=== PATIENT | female | born 1960 | race Caucasian/White ===

== ENCOUNTER 2017-09-02 12:49 | Emergency (ER) | payer MEDICARE, MEDICAID, SELFPAY ==
[2017-09-02 12:51] VITALS: BP 157/86; PULSE 89; RESP 18; TEMP 37.3; O2SAT 95; BMI 41.5
--- NOTE | 2017-09-02 13:05 | EKG12_ITS ---
Test Reason : COUGH Blood Pressure : / mmHG Vent. Rate : 086 BPM Atrial Rate : 086 BPM P-R Int : 140 ms QRS Dur : 082 ms QT Int : 350 ms P-R-T Axes : -17 054 018 degrees QTc Int : 418 ms Sinus rhythm with marked sinus arrhythmia Nonspecific ST abnormality Abnormal ECG Confirmed by JT THAPA, KEKE ([id number]), design editor LUIS GIRALDO ([id number]) on 09/05/2017 2:50:33 PM Referred By: REMBERTO Confirmed By:KEKE WATERS MD
--- NOTE | 2017-09-02 13:05 | RAD_ITS ---
STUDY: X-RAY CHEST REASON FOR EXAM: Female, 57 years old. 3 day history of cough and chest pain. TECHNIQUE: PA and lateral views of the chest. COMPARISON: Comparison is made with prior study dated November 11, 2015. FINDINGS: Hyperinflation. Since prior study, there is evidence of a new focal infiltrate in the posterior medial segment of the left lower lobe. This is superimposed on mild degree of bibasilar scarring. There is no demonstrated pleural abnormality. Normal size heart. Normal mediastinum and rico. Normal visualized pulmonary arteries. There is atherosclerotic tortuosity of the aortic arch and descending thoracic aorta. There is demineralization of the osseous structures. Normal visualized ribs, clavicles, and shoulders. Status post cholecystectomy. RAD/Chest PA and Lateral IMPRESSION: Focal infiltrate in the posterior medial segment of the left lower lobe superimposed on mild degree of basilar scarring. Electronically Signed: Evan Pike MD at 14:29 EST Tel [phone], Service support ,
[2017-09-02 13:16] VITALS: PULSE 92; RESP 20
[2017-09-02] MEDS: Ipratropium/Albuterol Sulfate 3 ML AMPUL.NEB INHALATION (13:16)
[2017-09-02 13:50] LABS: Absolute Lymphocyte Count 1.61 X10^3/ul (0.83-4.51); Absolute Neutrophil Count 6.1 X10^3/uL (2.0-7.7); Basophil# 0.01 X10^3/uL; Basophil% 0.1 % (0-1); Eosinophil# 0.05 X10^3/uL; Eosinophils% 0.6 % (0-5); Hematocrit 38.4 % (37-47); Lymphocyte # 1.61 X10^3/ul (4.0); Lymphocyte % 18.4 % (19-41); Mean Corp Hgb Conc 33.9 g/gl (32-36); Mean Corpuscular Hgb 34.1 pg (27.0-32.0); Mean Corpuscular Volume 100.8 fL (81-99); Monocyte# 0.98 X10^3/uL; Monocyte% 11.2 % (0-10); Neutrophil # 6.07 X10^3/uL (2.7-7.7); Neutrophil % 69.5 % (47-70); Platelet Count 159 K/mm3 (150-450); RBC Distribution Width CV 13.7 % (11.6-14.6); Red Blood Count 3.81 M/mm3 (4.2-5.4); White Blood Count 8.7 K/mm3 (4.4-11.0)
[2017-09-02 13:52] LABS: POSITIVE COUNT NO; POSITIVE DIFFERENTIAL NO; POSITIVE MORPHOLOGY NO
--- NOTE | 2017-09-02 13:56 | ED.VISSUMM ---
- ER Visit Summary Date of Service: 09/02/17 Chief Complaint: [] Cough for 3 days COPD home O2 2 L History of Present Illness: The patient is a 57 F [] 3 days of harsh dry cough on home O2 basically reports that her breathing and COPD is stable except for the harsh cough no runny nose she has had a flu vaccination she has no history of TX PE or DVT she is able to eat and drink bowel bladder habits are normal Physical Examination: [] Is a harsh dry cough she is in no distress her vital signs are within normal range pulse ox 94% on 2 L her nose is clear her throat is clear neck is supple her lungs sound clear heart tones are normal abdomen soft nontender upper lower extremity unremarkable clinically she looks well except for this harsh barky cough Test Results: [] Emergency Department Course and Treatment: [] Labs are obtained we are within the flu season timeframe she was vaccinated she has no fever Her screening labs EKG are unremarkable on reevaluation she is feeling much better her cough is improved her x-ray shows questionable left lingular left lower lobe infiltrate superimposed on what appears to be scar. Discussed all the above with her she is not recently been on antibiotics she will be started on Levaquin Mucinex she has all of her inhalers to see Dr. Thompson the next few days return for change in symptoms again she is feeling much better she wants to go home, I will give her Tylenol 3 4 tablets to use only 1 tablet nightly to suppress her cough so she can rest at night Treatment Plan: [] Disposition: [] Home stable Impression: [] Cough exacerbation of COPD left lower lobe pneumonia infiltrate This note was generated with [employer] dictation software. It may contain incorrect words, spelling, and punctuation that were not noted in review of the chart prior to signing ED Disposition - Plan for ED Patient: Chief Complaint: Cough Referrals: Lilly Arthur [Primary Care Provider] -
[2017-09-02 14:04] LABS: Anion Gap 7 (5-15); BUN 10 mg/dL (7-18); BUN/Creat Ratio 9.9 RATIO (10-20); Calcium,Total 8.6 mg/dL (8.5-10.1); Chloride 102 mmol/L (98-107); Creatinine, Serum 1.01 mg/dL (0.55-1.02); EST Glomerular Filtration Rate 60 mL/min (>60); Est Glom Filt Rate - Afr Amer 72 mL/min (>60); Estimated Creatinine Clearance 58.32 ml/min; Glucose 112 mg/dL (74-106); Potassium 3.7 mmol/L (3.5-5.1); Sodium Level 137 mmol/L (136-145)
[2017-09-02 14:18] LABS: BNP,B-Type NATRIURETIC PEPTIDE 45.1 pg/mL (0-100)
[2017-09-02 15:33] VITALS: BP 128/73; PULSE 90; RESP 16; O2SAT 95
--- NOTE | 2017-09-02 16:48 | ED.DEP ---
ED Disposition - Plan for ED Patient: Chief Complaint: Cough Instructions: ED COPD Flare, ED Upper Resp Infec Abx Tx, ED Pneumonia Adult Prescriptions: Acetaminophen/Codeine #3 [Tylenol #3 Tablet] 1 tab PO QHS #4 tab Levofloxacin [Levaquin] 750 mg PO DAILY #7 tab Guaifenesin [Mucinex] 1,200 mg PO BID #14 tbmp.12hr Referrals: Lilly Arthur [Primary Care Provider] -
[2017-09-02] MEDS: levoFLOXacin 750 MG Tablet PO (16:52)
[2017-09-02 17:00] VITALS: BP 118/75; PULSE 80; RESP 16; O2SAT 98
== END 2017-09-02 17:02 | disposition home or self-care (01) ==
LOC: ED 13:31
PROVIDERS: Emergency Provider Emergency Medicine; Family Provider Internal Medicine; PCP Internal Medicine
DX: J44.1 Chronic obstructive pulmonary disease with (acute) exacerbation (principal); J18.9 Pneumonia, unspecified organism; R05 Cough; Z99.81 Dependence on supplemental oxygen; Z79.51 Long term (current) use of inhaled steroids; Z79.82 Long term (current) use of aspirin; Z79.899 Other long term (current) drug therapy
CPT/HCPCS: 71046; 80048; 83880; 84484; 85025; 93005; 94640; 99284; A4216

== ENCOUNTER → 2018-01-08 13:10 | Outpatient (CLI) | payer MEDICARE, MEDICAID, SELFPAY ==
--- NOTE | 2018-01-09 06:06 | PFTCOMP_ITS ---
COMPLETE PULMONARY FUNCTION TEST INTERPRETATION Brief HPI: Patient is a 57 year old female, currently under the care of myself, who presents to [facility] for complete pulmonary function tests secondary to diagnosis of COPD. Respiratory therapist reports good effort and reproducible results. Interpretation: Forced expiration spirometry shows a mild large airways obstructive ventilatory defect with an FEV1 of 83% predicted. There is no significant bronchodilator response by ATS criteria. Spirograms are of good quality and plateau slowly, indicating slowly emptying areas of the lungs. The respiratory flow volume loop shows decreased expiratory flow rates at all lung volumes consistent with airway obstruction. Lung volumes by body plethysmography show a normal total lung capacity at 5.47 L , 99% predicted. All other lung volumes are within normal limits. Diffusion capacity by carbon monoxide is decreased at 52% predicted. The airway resistance is normal. Compared to previous pulmonary function tests from 12/02/2016, there has been a significant improvement in FEV1 by 16%. Impression: Irreversible mild large airways obstructive ventilatory defect and corresponding decrease in DLCO with mild improvement compared to previous study.
== END ==
PROVIDERS: Family Provider Internal Medicine; PCP Internal Medicine; Visit Provider Nurse Practitioner Acute Care
DX: J44.1 Chronic obstructive pulmonary disease with (acute) exacerbation (principal)
CPT/HCPCS: 94060; 94726; 94729

== ENCOUNTER → 2018-06-24 12:53 | Outpatient (CLI) | payer MEDICARE, SELFPAY ==
--- NOTE | 2018-06-24 14:38 | PFTCOMP ---
COMPLETE PULMONARY FUNCTION TEST INTERPRETATION Brief HPI: Patient is a 58 year old female, currently under the care of myself, who presents to [facility] for complete pulmonary function tests secondary to diagnosis of COPD. Respiratory therapist reports good effort and reproducible results. Interpretation: Forced expiration spirometry shows a mild large airways obstructive ventilatory defect with an FEV1 of 80% predicted. There is no significant bronchodilator response by strict ATS criteria. Spirograms are of good quality and plateau slowly, indicating slowly emptying areas of the lungs. The respiratory flow volume loop shows decreased expiratory flow rates at high lung volumes consistent with small airways obstruction. Lung volumes by body plethysmography show a normal total lung capacity at 5.64 L, 103% predicted. All other lung volumes are within normal limits. Diffusion capacity by carbon monoxide is decreased at 60% predicted. The airway resistance is normal. Compared to previous pulmonary function tests from 01/08/2018, there has been a significant improvement in DLCO by 14%. Impression: Irreversible mild large airways obstructive ventilatory defect with a reduction in diffusing capacity. There has been some improvement compared to previous testing.
== END ==
PROVIDERS: Family Provider Internal Medicine; PCP Internal Medicine; Referring Provider Nurse Practitioner Acute Care; Visit Provider Nurse Practitioner Acute Care
DX: J44.9 Chronic obstructive pulmonary disease, unspecified (principal)
CPT/HCPCS: 94060; 94726; 94729

== ENCOUNTER → 2019-01-04 | Outpatient (CLI) | payer MEDICARE, SELFPAY ==
[2019-01-04 11:08] VITALS: PULSE 101; PULSE 103; PULSE 104; PULSE 105; PULSE 73; PULSE 85; PULSE 91; PULSE 95; O2SAT 88; O2SAT 89; O2SAT 90; O2SAT 91; O2SAT 92; O2SAT 93; O2SAT 96
--- NOTE | 2019-01-04 15:19 | PCM.PSN.6M ---
PSN 6 Minute Walk Test - 6 Minute Walk Test 6 Minute Walk Test: 6 Minute Walk Test PSN:6-Minute Walk Test Start: 01/04/19 11:07 Freq: Status: Active Protocol: RESP.6MINW Document 01/04/19 11:08 Heidy (Rec: 01/04/19 11:10 B [id number]) 6 Minute Walk Test Date Performed 01/04/19 Time Performed 10:53 Height 5 ft 7 in Weight: 130.181 kg Weight in Pounds 287.[address]: Riccardo Thompson Assistive device used: None Pre-test Oxygen Delivery Method Room Air Pulse Ox (%) 93 Pulse Rate (60-100 beats/min) 73 Dyspnea Chandu Scale (0-10) 1 Exertion Chandu Scale (6-20) 11 1st minute Oxygen Delivery Method Room Air Pulse Ox (%) 89 Pulse Rate (60-100 beats/min) 104 H 2nd minute Oxygen Flow Rate (L/min) (L/min) 2 Oxygen Delivery Method Nasal Cannula Pulse Ox (%) 88 Pulse Rate (60-100 beats/min) 101 H 3rd minute Oxygen Flow Rate (L/min) (L/min) 2 Oxygen Delivery Method Nasal Cannula Pulse Ox (%) 92 Pulse Rate (60-100 beats/min) 103 H 4th minute Oxygen Flow Rate (L/min) (L/min) 2 Oxygen Delivery Method Nasal Cannula Pulse Ox (%) 91 Pulse Rate (60-100 beats/min) 105 H 5th minute Oxygen Flow Rate (L/min) (L/min) 2 Oxygen Delivery Method Nasal Cannula Pulse Ox (%) 90 Pulse Rate (60-100 beats/min) 85 6th minute Oxygen Flow Rate (L/min) (L/min) 2 Oxygen Delivery Method Nasal Cannula Pulse Ox (%) 90 Pulse Rate (60-100 beats/min) 95 Post-test Oxygen Flow Rate (L/min) (L/min) 2 Oxygen Delivery Method Nasal Cannula Pulse Ox (%) 96 Pulse Rate (60-100 beats/min) 91 Dyspnea Chandu Scale (0-10) 5 Exertion Chandu Scale (6-20) 13 Full Laps Walked 18 Partial Lap, Number of Tiles Walked 9 Total Distance Walked (ft) 1071 - Interpretation Interpretation: The patient was noted to be 93% on room air at rest. In the second minute of ambulation, patient desaturated as low as 88%. Patient was then placed on 2 L nasal cannula and oxygen fred was noted at 90%. In total, patient ambulated 1071 feet. These findings are consistent with a respiratory limitation exercise tolerance. - Recommendations Recommendations: The patient requires no supplemental oxygen at rest, but should be using 2 L nasal cannula with any exertion.
== END | disposition home or self-care (01) ==
LOC: PSN 10:49
PROVIDERS: Family Provider Internal Medicine; PCP Internal Medicine; Referring Provider Nurse Practitioner Acute Care; Visit Provider Nurse Practitioner Acute Care
DX: J44.9 Chronic obstructive pulmonary disease, unspecified (principal); J96.11 Chronic respiratory failure with hypoxia; Z99.81 Dependence on supplemental oxygen
CPT/HCPCS: 94618

== ENCOUNTER → 2019-07-02 13:02 | Outpatient (CLI) | payer MEDICARE, SELFPAY ==
[2019-01-25 10:59] VITALS: BMI 45.7
--- NOTE | 2019-07-03 09:21 | PFT ---
INTRODUCTION: The patient is a 59-year-old female that presents for pulmonary function studies secondary to a diagnosis of shortness of breath. Respiratory therapy reports good patient effort. Bronchodilators were used during testing. INTERPRETATION: Forced expiration spirometry demonstrates no evidence of a large airways obstructive ventilatory defect. There was no significant response to aerosolized bronchodilators. Spirograms are of fair quality and plateau gradually indicating slow emptying of the lungs. Body plethysmography was performed and reveals lung volumes to be within normal limits. Diffusing capacity by single breath CO is reduced at 55% of predicted. IMPRESSION: Isolated moderate reduction in diffusing capacity.
== END ==
PROVIDERS: Family Provider Internal Medicine; PCP Internal Medicine; Referring Provider Nurse Practitioner Acute Care; Visit Provider Nurse Practitioner Acute Care
DX: J44.9 Chronic obstructive pulmonary disease, unspecified (principal)
CPT/HCPCS: 94060; 94726; 94729

== ENCOUNTER 2019-07-29 11:15 | Outpatient (RCR) | payer MEDICARE, SELFPAY ==
[2019-07-13 06:10] VITALS: BMI 47.2
[2019-07-22 11:27] VITALS: BP 135/71; PULSE 72; RESP 18; TEMP 36.2; BMI 46.6
--- NOTE | 2019-07-22 13:23 | HP.PCM_ITS ---
(1) Abdominal wall ulcer Status: Acute Current Visit: Yes Code(s): L98.499 - Non-pressure chronic ulcer of skin of other sites with unspecified severity (2) Skin ulcer of abdominal wall with fat layer exposed Status: Acute Current Visit: Yes Code(s): L98.492 - Non-pressure chronic ulcer of skin of other sites with fat layer exposed (3) Type 2 diabetes mellitus Status: Acute Current Visit: Yes Code(s): E11.9 - Type 2 diabetes mellitus without complications (4) Tobacco dependence Status: Chronic Current Visit: Yes Code(s): F17.200 - Nicotine dependence, unspecified, uncomplicated History of Present Illness Date of Service: 07/22/19 Chief Complaint: Abdominal Ulcer History of Wound: Ms. Mejia is a 59 yo who presents to the wound center due to non healing left sided abdominal ulcer. Noted 3 weeks ago. She believes it may have been due to pressure from her belt/buckle. She had tried to manage conervatively with no improvement. She feels well otherwise and denies chills, fever, nausea or vomiting. Past Medical History Past Medical History: Chronic Problems (Last Updated 07/13/19 @ 12:21 by Riccardo Thompson MD) FARIBA treated with BiPAP (Chronic) BiPAP Chronic respiratory failure with hypoxia, on home oxygen therapy (Chronic) Stage 2 moderate chronic obstructive pulmonary disease by Global Initiative for Chronic Obstructive Lung Disease classification (Chronic) Continuous tobacco abuse (Chronic) HTN (hypertension) (Chronic) Anxiety (Chronic) Tobacco dependence (Chronic) GERD (gastroesophageal reflux disease) (Chronic) Diabetes type 2, controlled (Chronic) Surgical History: no surgical history Allergies/Adverse Reactions: Allergies gabapentin Allergy (Verified 07/13/19 10:52) Anaphylaxis Home Medications: Ambulatory Orders Medication Instructions Recorded Aspirin [Aspirin, Baby] 81 mg PO DAILY 09/11/15 Omeprazole [Prilosec] 40 mg PO DAILY 09/11/15 Paroxetine HCl [Paxil] 40 mg PO DAILY 09/11/15 Ipratropium/Albuterol Sulfate 3 ml INHALATION Q4H.RT PRN #50 09/14/15 [Duoneb] ampul.neb Alendronate Sodium [Fosamax] 70 mg PO SOSA 08/23/16 Amlodipine Besylate [Norvasc] 2.5 mg PO DAILY 08/23/16 Solifenacin Succinate [Vesicare] 5 mg PO DAILY 03/08/17 Acetaminophen/Codeine #3 [Tylenol 1 tab PO QHS #4 tab 09/02/17 #3 Tablet] Bupropion HCl [Wellbutrin Sr] 150 mg PO BID 09/02/17 benzonatate 200 mg capsule 200 mg PO TID PRN #90 cap 07/08/18 fluticasone propionate 50 2 spray INTRANASAL DAILY #16 g 11/10/18 mcg/actuation nasal spray,suspension cetirizine 10 mg tablet 10 mg PO DAILY 01/25/19 loratadine 10 mg tablet 10 mg PO DAILY 01/25/19 albuterol sulfate 90 mcg/actuation 2 puff INHALATION Q4H PRN #1 07/13/19 aerosol inhaler hfa.aer.ad fluticasone propionate 220 2 puff INHALATION BID #12 g 07/13/19 mcg/actuation HFA aerosol inhaler montelukast 10 mg tablet 10 mg PO QPM #90 tab 07/13/19 tiotropium 2.5 mcg-olodaterol 2.5 2 puff INHALATION DAILY #4 g 07/13/19 mcg/actuation mist for inhalation - Family History Maternal Family History: Family History (Last Reviewed 07/13/19 @ 10:53 by Etta Elizalde) Mother Heart disease Diabetes Father Heart disease Diabetes Colon cancer Hypertension Smoking Status: Current every day smoker Review of Systems Constitutional: Denies: Anorexia, Chills, Fever Eyes: Denies: Pain, Redness HEENT: Denies: Difficulty Swallowing Cardiovascular: Denies: Chest Pain, Chest Pressure Respiratory: Denies: Cough, Pleuritic Pain Gastrointestinal: Denies: Abdominal Pain, Hematemesis, Vomiting Skin: Denies: Jaundice - Physical Exam Vital Signs Temp Pulse Resp BP 97.1 F L 72 18 135/71 H 07/22/19 11:27 07/22/19 11:27 07/22/19 11:27 07/22/19 11:27 General: Alert, Oriented x3, Cooperative, No apparent distress HEENT: Atraumatic, Normocephalic Oral: Moist Mucosa Neck: Supple Lungs: Clear to auscultation Cardiovascular: Regular rate, Regular Rhythm, Normal S1, Normal S2 Abdomen: Soft, Obese Extremities: No cyanosis Skin: Ulcer/ Wound Wound Measurements and Assessment WC - Nurse 1 - General Ulcer Measurement Start: 07/22/19 11:26 Freq: Status: Active Protocol: Activity Type Activity Date Activity User E-Sign Co-Sign Detail Recorded Client Recorded Date Recorded By Document 07/22/19 11:27 CS [id number] 07/22/19 11:29 CS 07/22/19 11:27 Wound Center Nurse 1 [Ulcer Assessment] #2 mid abdomen -Combined with other wound No -Current Size (cm) - Length 0.6 -Current Size (cm) - Width 0.8 -Current Size (cm) - Depth 0.1 -Total Square Cm 0.48 -Date of Last Picture (Recall this 07/22/19 field) -Photo Taken Yes -Epithelialization Large 67-100% -Tunneling No -Undermining/Tunneling No -Circular Undermining No -Exudate Amt None Present -Wound Margin Distinct, Outline Attached -Granulation Amt Large (67-100%) -Granulation Quality [place] -Slough/Fibrin Yes -Necrosis Amt None Present (0 %) -Necrotic Tissue Type Adherent Slough -Structure Exposed N/A -Texture (Aura-wound Skin Appearance) No Abnormality, Assessed -Moisture (Aura-wound Skin Appearance No Abnormality, ) Assessed -Color (Aura-wound Skin Appearance) No Abnormality, Assessed -Temperature (Aura-wound Skin No Abnormality Appearance) (Pt Warm) -Tenderness on Palpation (Aura-wound No Skin Appearance) -Ulcer Cleansing Rinsed/ Irrigated with Saline -Foul Odor after Cleansing No -Anesthetic Used 4% Lidocaine Solution [Edema Assessment] -Lower Limb Edema Present NA WC - Nurse 2 - General Ulcer CM Notes Start: 07/22/19 11:26 Freq: Status: Active Protocol: Activity Type Activity Date Activity User E-Sign Co-Sign Detail Recorded Client Recorded Date Recorded By Document 07/22/19 11:48 MW [id number] 07/22/19 11:51 MW 07/22/19 11:48 Wound Center Nurse 2 [Procedure/Treatment] #2 mid abdomen -Time 11:49 -Correct Patient Yes -Correct Side, Site, Position Yes -Correct Procedure Yes -Procedure Performed Yes -Type of Procedure Debridement -Clinical Debridement Subcutaneous -Post Debridement Size (cm) - Length 0.4 -Post Debridement Size (cm) - Width 1.0 -Post Debridement Size (cm) - Depth 0.2 -Total Square Cm 0.40 -Wound/Ulcer Outcome Not Healed -Ulcer Cleansing Rinsed/ Irrigated with Saline -Foul Odor after Cleansing No -Bioengineered Tissue No -Bleeding Controlled with Pressure -Offloading No -Treatment Response Procedure Tolerated Well [See Physician Procedure note for Specifics] Pain Scale: 0-10 Numeric [Pain] -Is Patient Pain Free? Yes Musculoskeletal: No Muscle Wasting Neurological: Cranial nerves II-XII grossly intact Psych/Mental Status: Normal Affect Debridement Note Post-Debridement Measurements/Treatment WC - Nurse 2 - General Ulcer CM Notes Start: 07/22/19 11:26 Freq: Status: Active Protocol: Activity Type Activity Date Activity User E-Sign Co-Sign Detail Recorded Client Recorded Date Recorded By Document 07/22/19 11:48 MW [id number] 07/22/19 11:51 MW 07/22/19 11:48 Wound Center Nurse 2 #2 mid abdomen -Time 11:49 -Correct Patient Yes -Correct Side, Site, Position Yes -Correct Procedure Yes -Procedure Performed Yes -Type of Procedure Debridement -Clinical Debridement Subcutaneous -Post Debridement Size (cm) - Length 0.4 -Post Debridement Size (cm) - Width 1.0 -Post Debridement Size (cm) - Depth 0.2 -Total Square Cm 0.40 -Wound/Ulcer Outcome Not Healed -Ulcer Cleansing Rinsed/ Irrigated with Saline -Foul Odor after Cleansing No -Bioengineered Tissue No -Bleeding Controlled with Pressure -Offloading No -Treatment Response Procedure Tolerated Well Pain Scale: 0-10 Numeric Is Patient Pain Free? Yes Wound debrided: Abdomen ( left sided ) Type of Debridement: Excisional debridement Anesthesia Used: 4% Lidocaine Solution Depth: Down to and including healthy tissue, in the subcutaneous layer Percentage of wound debrided: 100 Instrument Used: 3mm curette Tissue Removed: Slough and devitalized tissue Severity: Fat Layer Exposed Amount of bleeding with debridement: Mild Bleeding Controlled with: Pressure Patient tolerated procedure well Assessment/Plan Active Problems (Last Updated 07/13/19 @ 12:21 by Riccardo Thompson MD) Abdominal wall ulcer (Acute) Skin ulcer of abdominal wall with fat layer exposed (Acute) Type 2 diabetes mellitus (Acute) Tobacco dependence (Chronic) Assessment: Acute Abdominal wall ulcer with fat layer exposed. History of Tobacco abuse and Type II DM. Plan: Debridement done as documented above. Procedure was well-tolerated. Shawno gran daily with abd/guaze over top. Optimal Dm control, Increased protein intake and offloading recomended. She had the opportunity to ask questions and was advised to call with any further questions or concerns. Follow up in 1 week. Multi Select Codes - Visit Charges Office Visit/Consults: 29977 OV L3 New - E and M L3 ( New ) - Integumentary Integumentary CPT Codes: 33989 Bernie subq tissue 20 sq cm/<
[2019-07-29 11:20] VITALS: BP 140/65; PULSE 68; RESP 18; TEMP 35.8; BMI 46.6
--- NOTE | 2019-07-29 12:00 | PCM.WC.PN ---
(1) Abdominal wall ulcer Status: Acute Current Visit: Yes Code(s): L98.499 - Non-pressure chronic ulcer of skin of other sites with unspecified severity (2) Skin ulcer of abdominal wall with fat layer exposed Status: Acute Current Visit: Yes Code(s): L98.492 - Non-pressure chronic ulcer of skin of other sites with fat layer exposed (3) Type 2 diabetes mellitus Status: Acute Current Visit: Yes Code(s): E11.9 - Type 2 diabetes mellitus without complications (4) Tobacco dependence Status: Chronic Current Visit: Yes Code(s): F17.200 - Nicotine dependence, unspecified, uncomplicated Type of Wound Date of Service: 07/29/19 Chief Complaint: Abdominal Ulcer History of Wound: Ms. Mejia is a 59 yo who presents to the wound center due to non healing left sided abdominal ulcer. Noted 3 weeks ago. She believes it may have been due to pressure from her belt/buckle. She had tried to manage conervatively with no improvement. She feels well otherwise and denies chills, fever, nausea or vomiting. Progress of Wound: Improving. No new concerns at this time. - Physical Exam Vital Signs Temp Pulse Resp BP 96.5 F L 68 18 140/65 H 07/29/19 11:20 07/29/19 11:20 07/29/19 11:20 07/29/19 11:20 General: Alert, Oriented x3, Cooperative, No apparent distress HEENT: Atraumatic, Normocephalic Oral: Moist Mucosa Neck: Supple Lungs: Normal air movement Abdomen: Soft, Obese Extremities: No cyanosis Skin: Ulcer/ Wound Wound Measurements and Assessment WC - Nurse 1 - General Ulcer Measurement Start: 07/22/19 11:26 Freq: Status: Active Protocol: Activity Type Activity Date Activity User E-Sign Co-Sign Detail Recorded Client Recorded Date Recorded By Document 07/29/19 11:20 [id number] 07/29/19 11:24 07/29/19 11:20 Wound Center Nurse 1 [Ulcer Assessment] #2 mid abdomen -Combined with other wound No -Current Size (cm) - Length 0.4 -Current Size (cm) - Width 0.7 -Current Size (cm) - Depth 0.1 -Total Square Cm 0.28 -Photo Taken No -Epithelialization None Present -Tunneling No -Undermining/Tunneling No -Circular Undermining No -Exudate Amt None Present -Wound Margin Distinct, Outline Attached -Granulation Amt Large (67-100%) -Granulation Quality Red -Slough/Fibrin Yes -Necrosis Amt None Present (0 %) -Necrotic Tissue Type Adherent Slough -Structure Exposed N/A -Texture (Aura-wound Skin Appearance) No Abnormality, Assessed -Moisture (Aura-wound Skin Appearance No Abnormality, ) Assessed -Color (Aura-wound Skin Appearance) No Abnormality, Assessed -Temperature (Aura-wound Skin No Abnormality Appearance) (Pt Warm) -Tenderness on Palpation (Aura-wound No Skin Appearance) -Ulcer Cleansing Rinsed/ Irrigated with Saline -Foul Odor after Cleansing No -Anesthetic Used 5% Lidocaine Gel [Edema Assessment] -Lower Limb Edema Present NA WC - Nurse 2 - General Ulcer CM Notes Start: 07/22/19 11:26 Freq: Status: Active Protocol: Activity Type Activity Date Activity User E-Sign Co-Sign Detail Recorded Client Recorded Date Recorded By Document 07/29/19 11:57 MW [id number] 07/29/19 11:59 MW 07/29/19 11:57 Wound Center Nurse 2 [Procedure/Treatment] #2 mid abdomen -Time 11:58 -Correct Patient Yes -Correct Side, Site, Position Yes -Correct Procedure Yes -Procedure Performed Yes -Type of Procedure Debridement -Clinical Debridement Subcutaneous -Post Debridement Size (cm) - Length 0.2 -Post Debridement Size (cm) - Width 0.6 -Post Debridement Size (cm) - Depth 0.1 -Total Square Cm 0.12 -Wound/Ulcer Outcome Not Healed -Ulcer Cleansing Rinsed/ Irrigated with Saline -Foul Odor after Cleansing No -Bioengineered Tissue No -Bleeding Controlled with Pressure -Offloading No -Treatment Response Procedure Tolerated Well [See Physician Procedure note for Specifics] Pain Scale: 0-10 Numeric [Pain] -Is Patient Pain Free? Yes Musculoskeletal: No Muscle Wasting Neurological: Cranial nerves II-XII grossly intact Psych/Mental Status: Normal Affect Debridement Note Post-Debridement Measurements/Treatment WC - Nurse 2 - General Ulcer CM Notes Start: 07/22/19 11:26 Freq: Status: Active Protocol: Activity Type Activity Date Activity User E-Sign Co-Sign Detail Recorded Client Recorded Date Recorded By Document 07/22/19 11:48 MW [id number] 07/22/19 11:51 MW Document 07/29/19 11:57 MW [id number] 07/29/19 11:59 MW 07/22/19 07/29/19 11:48 11:57 Wound Center Nurse 2 #2 mid abdomen -Time 11:49 11:58 -Correct Patient Yes Yes -Correct Side, Site, Position Yes Yes -Correct Procedure Yes Yes -Procedure Performed Yes Yes -Type of Procedure Debridement Debridement -Clinical Debridement Subcutaneous Subcutaneous -Post Debridement Size (cm) - Length 0.4 0.2 -Post Debridement Size (cm) - Width 1.0 0.6 -Post Debridement Size (cm) - Depth 0.2 0.1 -Total Square Cm 0.40 0.12 -Wound/Ulcer Outcome Not Healed Not Healed -Ulcer Cleansing Rinsed/ Rinsed/ Irrigated with Irrigated with Saline Saline -Foul Odor after Cleansing No No -Bioengineered Tissue No No -Bleeding Controlled with Pressure Pressure -Offloading No No -Treatment Response Procedure Procedure Tolerated Well Tolerated Well Pain Scale: 0-10 Numeric Is Patient Pain Free? Yes Yes Wound debrided: Abdomen ( left sided ) Type of Debridement: Excisional debridement Anesthesia Used: 4% Lidocaine Solution Depth: Down to and including healthy tissue, in the subcutaneous layer Percentage of wound debrided: 100 Instrument Used: 3mm curette Tissue Removed: Slough and devitalized tissue Severity: Fat Layer Exposed Amount of bleeding with debridement: Mild Bleeding Controlled with: Pressure Patient tolerated procedure well Assessment/Plan Active Problems (Last Updated 07/13/19 @ 12:21 by Riccardo Thompson MD) Abdominal wall ulcer (Acute) Skin ulcer of abdominal wall with fat layer exposed (Acute) Type 2 diabetes mellitus (Acute) Tobacco dependence (Chronic) Assessment: Acute Abdominal wall ulcer with fat layer exposed. History of Tobacco abuse and Type II DM. Plan: Debridement done as documented above. Procedure was well-tolerated. Continue Pomogran daily with abd/guaze over top. Optimal Dm control, Increased protein intake and offloading recomended. She had the opportunity to ask questions and was advised to call with any further questions or concerns. Follow up in 1 week. Code Visit [id number]: [id number] Bernie subq tissue 20 sq cm/<
== END 2019-07-30 23:59 ==
LOC: WC 11:15
PROVIDERS: PCP Internal Medicine; Visit Provider Internal Medicine
DX: E11.622 Type 2 diabetes mellitus with other skin ulcer (principal); L98.492 Non-pressure chronic ulcer of skin of other sites with fat layer exposed; F17.200 Nicotine dependence, unspecified, uncomplicated; K21.9 Gastro-esophageal reflux disease without esophagitis; I10 Essential (primary) hypertension; J44.9 Chronic obstructive pulmonary disease, unspecified; Z99.81 Dependence on supplemental oxygen; J96.11 Chronic respiratory failure with hypoxia; G47.33 Obstructive sleep apnea (adult) (pediatric); F41.9 Anxiety disorder, unspecified; Z79.899 Other long term (current) drug therapy; Z79.82 Long term (current) use of aspirin
CPT/HCPCS: 11042; 99213; G0463

== ENCOUNTER 2019-08-05 08:27 | Outpatient (RCR) | payer MEDICARE, SELFPAY ==
[2019-07-31 01:15] VITALS: BP 140/65; PULSE 68; RESP 18; TEMP 35.8
[2019-08-05 12:07] VITALS: BP 136/76; PULSE 80; RESP 18; TEMP 35.3; BMI 46.6
--- NOTE | 2019-08-05 12:43 | PN.PCM_ITS ---
(1) Abdominal wall ulcer Status: Acute Current Visit: Yes Code(s): L98.499 - Non-pressure chronic ulcer of skin of other sites with unspecified severity (2) Skin ulcer of abdominal wall with fat layer exposed Status: Acute Current Visit: Yes Code(s): L98.492 - Non-pressure chronic ulcer of skin of other sites with fat layer exposed (3) Type 2 diabetes mellitus Status: Acute Current Visit: Yes Code(s): E11.9 - Type 2 diabetes mellitus without complications (4) Continuous tobacco abuse Status: Chronic Current Visit: No Code(s): Z72.0 - Tobacco use Type of Wound Date of Service: 08/05/19 Chief Complaint: Abdominal Ulcer History of Wound: Ms. Mejia is a 59 yo who presents to the wound center due to non healing left sided abdominal ulcer. Noted 3 weeks ago. She believes it may have been due to pressure from her belt/buckle. She had tried to manage conervatively with no improvement. She feels well otherwise and denies chills, fever, nausea or vomiting. Progress of Wound: Healed. - Physical Exam Vital Signs Temp Pulse Resp BP 95.6 F L 80 18 136/76 H 08/05/19 12:07 08/05/19 12:07 08/05/19 12:07 08/05/19 12:07 General: Alert, Oriented x3, Cooperative, No apparent distress HEENT: Atraumatic, Normocephalic Oral: Moist Mucosa Neck: Supple Lungs: Normal air movement Abdomen: Soft, Non Tender, Obese Extremities: No cyanosis Wound Measurements and Assessment WC - Nurse 1 - General Ulcer Measurement Start: 08/05/19 12:06 Freq: Status: Active Protocol: Activity Type Activity Date Activity User E-Sign Co-Sign Detail Recorded Client Recorded Date Recorded By Document 08/05/19 12:07 [id number] 08/05/19 12:11 08/05/19 12:07 Wound Center Nurse 1 [Ulcer Assessment] #2 mid abdomen -Combined with other wound No -Current Size (cm) - Length 0.4 -Current Size (cm) - Width 0.1 -Current Size (cm) - Depth 0.1 -Total Square Cm 0.04 -Photo Taken No -Epithelialization Small 1-33% -Tunneling No -Undermining/Tunneling No -Circular Undermining No -Exudate Amt None Present -Wound Margin Distinct, Outline Attached -Granulation Amt Large (67-100%) -Granulation Quality Pale,[place] -Necrosis Amt None Present (0 %) -Necrotic Tissue Type Adherent Slough -Structure Exposed N/A -Texture (Aura-wound Skin Appearance) No Abnormality, Assessed -Moisture (Aura-wound Skin Appearance No Abnormality, ) Assessed -Color (Aura-wound Skin Appearance) No Abnormality, Assessed -Temperature (Aura-wound Skin No Abnormality Appearance) (Pt Warm) -Tenderness on Palpation (Aura-wound No Skin Appearance) -Ulcer Cleansing Rinsed/ Irrigated with Saline -Foul Odor after Cleansing No -Anesthetic Used 5% Lidocaine Gel [Edema Assessment] -Lower Limb Edema Present NA WC - Nurse 2 - General Ulcer CM Notes Start: 08/05/19 12:06 Freq: Status: Active Protocol: Activity Type Activity Date Activity User E-Sign Co-Sign Detail Recorded Client Recorded Date Recorded By Document 08/05/19 12:29 MW [id number] 08/05/19 12:31 MW 08/05/19 12:29 Wound Center Nurse 2 [Procedure/Treatment] #2 mid abdomen -Time 12:30 -Correct Patient Yes -Correct Side, Site, Position Yes -Correct Procedure Yes -Procedure Performed No -Post Debridement Size (cm) - Length 0 -Post Debridement Size (cm) - Width 0 -Post Debridement Size (cm) - Depth 0 -Total Square Cm 0 -Wound/Ulcer Outcome Healed- Epithelialized [See Physician Procedure note for Specifics] Pain Scale: 0-10 Numeric [Pain] -Is Patient Pain Free? Yes Musculoskeletal: No Muscle Wasting Neurological: Cranial nerves II-XII grossly intact Psych/Mental Status: Normal Affect Debridement Note Post-Debridement Measurements/Treatment WC - Nurse 2 - General Ulcer CM Notes Start: 08/05/19 12:06 Freq: Status: Active Protocol: Activity Type Activity Date Activity User E-Sign Co-Sign Detail Recorded Client Recorded Date Recorded By Document 08/05/19 12:29 MW [id number] 08/05/19 12:31 MW 08/05/19 12:29 Wound Center Nurse 2 #2 mid abdomen -Time 12:30 -Correct Patient Yes -Correct Side, Site, Position Yes -Correct Procedure Yes -Procedure Performed No -Post Debridement Size (cm) - Length 0 -Post Debridement Size (cm) - Width 0 -Post Debridement Size (cm) - Depth 0 -Total Square Cm 0 -Wound/Ulcer Outcome Healed- Epithelialized Pain Scale: 0-10 Numeric Is Patient Pain Free? Yes No debridement was completed today Assessment/Plan Active Problems (Last Updated 07/13/19 @ 12:21 by Riccardo Thompson MD) Abdominal wall ulcer (Acute) Skin ulcer of abdominal wall with fat layer exposed (Acute) Type 2 diabetes mellitus (Acute) Assessment: Acute Abdominal wall ulcer with fat layer exposed. History of Tobacco abuse and Type II DM. Plan: Healed. Adaptic over area for 2 weeks. Gauze over top as well. She was advised to keep the area protected. Avoid pressure. Her questions were answered and she was advised to call with any further questions or concerns. Discharged from the wound clinic. This note was generated with [employer] dictation software. It may contain incorrect words, spelling, and punctuation that were not noted in checking the note before signing. Code Visit Office Visits / Consults: [id number] OV L3 Est
== END 2019-08-28 23:59 ==
LOC: WC 08:27
PROVIDERS: PCP Internal Medicine; Visit Provider Internal Medicine
DX: Z09 Encounter for follow-up examination after completed treatment for conditions other than malignant neoplasm (principal); E11.9 Type 2 diabetes mellitus without complications; Z72.0 Tobacco use
CPT/HCPCS: 99213; G0463

== ENCOUNTER → 2020-01-24 13:41 | Outpatient (CLI) | payer MEDICARE, SELFPAY ==
[2020-01-12 08:37] VITALS: BMI 46.6
--- NOTE | 2020-01-24 13:42 | CT_ITS ---
STUDY: LOW DOSE CT LUNG CANCER SCREENING REASON FOR EXAM: Female, 59 years old. LUNG SCREEN, 44 YR SMOKER X 2 PPD, COPD RADIATION DOSAGE (If Supplied By Facility): CTDIvol = ( 4.02 ) mGy, DLP = ( 137.43 ) mGycm TECHNIQUE: No contrast was administered. Low dose technique was utilized (average mAS-38 and kVp 120). 1.25 mm axial source images with a slice interval of 1.25-mm were reconstructed in lung windows. 2.5 mm axial source images with a slice interval of 2.5-mm were reconstructed in lung windows. 5.0 mm axial source images with a slice interval of 5.0-mm were reconstructed in soft tissue windows. Nodule measured using lung windows on PACS and/or independent workstation with automated measurement of minimum and maximum diameter. Nodule measurement reported as average diameter rounded to the nearest whole number. Growth is defined as an increase ins size of greater than 1.5 mm. COMPARISON: None. FINDINGS: Lung windows do not show evidence of a superimposed acute pulmonary process. There is no organized infiltrate, or suspicious groundglass opacifications. No noncalcified mass or nodule noted. There is dependent atelectasis in the lung bases. Peripheral calcifications noted in the thoracic aorta without aneurysm. Bony structures show degenerative change. CT/Low Dose CT Lung Screening IMPRESSION: Lung-RADS category 2 - Continue annual screening with LDCT in 12 months. IMPORTANT NOTES FOR USE: ACR Lung-RADS Version 1.0 Assessment Categories Release Date: October 25, 2013 Category: Coded 0-4 bases on nodule(s) with highest degree of suspicion. Negative screen is defined as categories 1 and 2; a positive screen is defined as categories 3 and 4. Category 3 and 4A nodules that are unchanged on interval CT should be coded as category 2, and individuals returned to screening in 12 months. Category 4X: Category 3 or 4 nodules with additional imaging findings that increase the suspicion of lung cancer, such as spiculation, GGN that doubles in size in 1 year, enlarged lymph notes, etc. Category Modifiers: S (significant finding unrelated to lung cancer) and C (prior history of treated lung cancer) may be added to the 0-4 Lung-RADS Electronically Signed: Eric Velasquez MD at 19:06 EDT , Service support ,
== END ==
PROVIDERS: PCP Internal Medicine; Referring Provider Nurse Practitioner Acute Care; Visit Provider Nurse Practitioner Acute Care
DX: F17.210 Nicotine dependence, cigarettes, uncomplicated (principal)
CPT/HCPCS: G0297

== ENCOUNTER → 2020-02-11 13:54 | Outpatient (CLI) | payer MEDICARE, SELFPAY ==
[2020-01-12 08:37] VITALS: BMI 46.6
[2020-02-11 14:00] VITALS: PULSE 106; PULSE 107; PULSE 109; PULSE 110; PULSE 111; PULSE 83; PULSE 86; PULSE 97; O2SAT 82; O2SAT 88; O2SAT 90; O2SAT 92; O2SAT 93; O2SAT 96
--- NOTE | 2020-02-11 14:31 | CPS ---
Mayela was placed on room air off her home O2. Sats were 93%. at one minute sats dropped to 82%. Placed her on 2L continuous O2. Sats increased to 90% on 2L. At 3 min sats decreased to 88%. Increased to 3L continuos and sats increased to 93% for the remainder of the test.
--- NOTE | 2020-02-12 06:14 | PCM.PSN.6M ---
PSN 6 Minute Walk Test - 6 Minute Walk Test 6 Minute Walk Test: 6 Minute Walk Test PSN:6-Minute Walk Test Start: 02/11/20 14:26 Freq: Status: Active Protocol: RESP.6MINW Document 02/11/20 14:00 EW (Rec: 02/11/20 14:31 EW [id number]) 6 Minute Walk Test Date Performed 02/11/20 Time Performed 14:00 Height 5 ft 7 in Weight: 296 lb Weight in Pounds 296.[address]: Bell Reagan Assistive device used: None Pre-test Oxygen Delivery Method Room Air Pulse Ox (%) 92 Pulse Rate (60-100 beats/min) 83 Dyspnea Chandu Scale (0-10) 2 Exertion Chandu Scale (6-20) 7 1st minute Oxygen Delivery Method Room Air Pulse Ox (%) 82 Pulse Rate (60-100 beats/min) 107 H Reported Symptoms Increased Work of Breathing 2nd minute Oxygen Flow Rate (L/min) (L/min) 2 Oxygen Delivery Method Nasal Cannula Pulse Ox (%) 90 Pulse Rate (60-100 beats/min) 97 3rd minute Oxygen Flow Rate (L/min) (L/min) 3 Oxygen Delivery Method Nasal Cannula Pulse Ox (%) 88 Pulse Rate (60-100 beats/min) 111 H Reported Symptoms Increased Work of Breathing 4th minute Oxygen Flow Rate (L/min) (L/min) 3 Oxygen Delivery Method Nasal Cannula Pulse Ox (%) 93 Pulse Rate (60-100 beats/min) 110 H 5th minute Oxygen Flow Rate (L/min) (L/min) 3 Oxygen Delivery Method Nasal Cannula Pulse Ox (%) 93 Pulse Rate (60-100 beats/min) 109 H 6th minute Oxygen Flow Rate (L/min) (L/min) 3 Oxygen Delivery Method Nasal Cannula Pulse Ox (%) 90 Pulse Rate (60-100 beats/min) 106 H Post-test Oxygen Flow Rate (L/min) (L/min) 3 Oxygen Delivery Method Nasal Cannula Pulse Ox (%) 96 Pulse Rate (60-100 beats/min) 86 Dyspnea Chandu Scale (0-10) 3 Exertion Chandu Scale (6-20) 12 Full Laps Walked 13 Partial Lap, Number of Tiles Walked 0 Total Distance Walked (ft) 767 - Interpretation Interpretation: The patient ambulated 767 feet over the course of 6 minutes beginning on room air without assistive devices or breaks. Pretesting oxygen saturation was noted to be 92% on room air. With ambulation, the patient desaturated on several occasions, requiring the initiation and subsequent escalation of supplemental oxygen flow rate to 3 L/min. - Recommendations Recommendations: 3 L/min of continuous flow supplemental oxygen should be utilized with exertion.
== END ==
LOC: PSN 13:57
PROVIDERS: PCP Internal Medicine; Referring Provider Nurse Practitioner Acute Care; Visit Provider Nurse Practitioner Acute Care
DX: J44.9 Chronic obstructive pulmonary disease, unspecified (principal)
CPT/HCPCS: 94618

== ENCOUNTER → 2020-02-22 09:40 | Outpatient (CLI) | payer MEDICARE, SELFPAY ==
[2020-01-12 08:37] VITALS: BMI 46.6
--- NOTE | 2020-02-24 08:22 | PFT ---
INTRODUCTION: The patient is a 59-year-old female that presents for pulmonary function studies secondary to a diagnosis of COPD. Respiratory therapy reports good patient effort. Bronchodilators were used during testing. INTERPRETATION: Forced expiration spirometry demonstrates no evidence of a large airways obstructive ventilatory defect. There was no significant response to aerosolized bronchodilators. Spirograms are of good quality and plateau gradually indicating slow emptying of the lungs. Body plus tomography was performed and reveals lung volumes to be within normal limits. Diffusing capacity by single breath CO is reduced at 46% of predicted. When compared to pulmonary function studies from June 2019, there has been a 15% reduction in DLCO. IMPRESSION: Isolated reduction in DLCO, which could be related to an underlying pulmonary vascular disorder, such as pulmonary hypertension. There has been worsening in the patient's diffusing capacity since June 2019, as noted above.
== END ==
LOC: PSN 09:41
PROVIDERS: PCP Internal Medicine; Referring Provider Nurse Practitioner Acute Care; Visit Provider Nurse Practitioner Acute Care
DX: J44.9 Chronic obstructive pulmonary disease, unspecified (principal)
CPT/HCPCS: 94060; 94726; 94729

== ENCOUNTER 2021-08-10 12:42 | Outpatient (CLI) | payer MEDICARE, SELFPAY ==
--- NOTE | 2021-08-10 12:49 | CT_ITS ---
STUDY: LOW DOSE CT LUNG CANCER SCREENING REASON FOR EXAM: Female, 61 years old. Screening. Patient smokes 1 pack per day for 48 years. RADIATION DOSAGE (If Supplied By Facility): CTDIvol = ( 3.18 ) mGy, DLP = ( 103.64 ) mGycm TECHNIQUE: No contrast was administered. Low dose technique was utilized (average mAS-38 and kVp 120). 1.25 mm axial source images with a slice interval of 1.25-mm were reconstructed in lung windows. 2.5 mm axial source images with a slice interval of 2.5-mm were reconstructed in lung windows. 5.0 mm axial source images with a slice interval of 5.0-mm were reconstructed in soft tissue windows. Nodule measured using lung windows on PACS and/or independent workstation with automated measurement of minimum and maximum diameter. Nodule measurement reported as average diameter rounded to the nearest whole number. Growth is defined as an increase ins size of greater than 1.5 mm. COMPARISON: Comparison is made with prior study dated 01/24/2020. NODULES: No suspicious nodules are seen. Emphysema: There now is evidence of focal patchy densities in the peripheral distribution involving both lungs worse in the right hemithorax. This may represent possible early infiltrate associated with Covid.If no symptoms of Covid this may represent areas of scarring. Endobronchial lesion: None Aorta: Atherosclerotic plaque formation of the aortic arch. Coronary arteries: Coronary artery calcification. Heart: Unremarkable Pulmonary artery: Unremarkable Mediastinal nodes: Unremarkable Other chest and abdominal findings: IMPRES INGE: Lung-RADS category 4A - Screening at 3 months with LDCT or evaluation with PET/CT may be used. IMPORTANT NOTES FOR USE: ACR Lung-RADS Version 1.1 Assessment Categories Release Date: 2018 Category: Coded 0-4 bases on nodule(s) with highest degree of suspicion. Negative screen is defined as categories 1 and 2; a positive screen is defined as categories 3 and 4. Category 3 and 4A nodules that are unchanged on interval CT should be coded as category 2, and individuals returned to screening in 12 months. Category 4X: Category 3 or 4 nodules with additional imaging findings that increase the suspicion of lung cancer, such as spiculation, GGN that doubles in size in 1 year, enlarged lymph notes, etc. Category Modifiers: S (significant finding unrelated to lung cancer) Electronically Signed: Evan Pike MD at 15:22 EST , CT/Low Dose CT Lung Screening
== END 2021-08-10 23:59 | disposition home or self-care (01) ==
LOC: CT 12:46
PROVIDERS: PCP Internal Medicine; Referring Provider Internal Medicine Critical Care Medicine; Visit Provider Internal Medicine Critical Care Medicine
DX: F17.210 Nicotine dependence, cigarettes, uncomplicated (principal)
CPT/HCPCS: 71271

== ENCOUNTER 2021-09-10 10:42 | Outpatient (CLI) | payer MEDICARE, SELFPAY ==
--- NOTE | 2021-09-10 15:35 | PFTCOMP_ITS ---
COMPLETE PULMONARY FUNCTION TEST INTERPRETATION Brief HPI: Patient is a 61 year old female, currently under the care of myself, who presents to [facility] for complete pulmonary function tests secondary to diagnosis of COPD. Respiratory therapist reports good effort and reproducible results. Interpretation: Forced expiration spirometry shows no large airways obstructive ventilatory defect with an FEV1 of 75% predicted. There is no significant bronchodilator response by strict ATS criteria. Spirograms are of good quality and plateau slowly, indicating slowly emptying areas of the lungs. The respiratory flow volume loop shows decreased expiratory flow rates at high lung volumes cons istent with small airways obstruction. Lung volumes by body plethysmography show a normal total lung capacity at 4.98 L, 91% predicted. All other lung volumes are within normal limits. Diffusion capacity by carbon monoxide is decreased at 56% predicted. The airway resistance is normal. Compared to previous pulmonary function tests from 07/02/2019, there has been no significant change. Impression: Isolated reduction diffusion capacity with some stigmata of small airways disease. There has not been significant change in function compared to 2019.
== END 2021-09-10 23:59 | disposition home or self-care (01) ==
LOC: PSN 10:44
PROVIDERS: PCP Internal Medicine; Referring Provider Nurse Practitioner Acute Care; Visit Provider Nurse Practitioner Acute Care
DX: J44.9 Chronic obstructive pulmonary disease, unspecified (principal)
CPT/HCPCS: 94060; 94726; 94729

== ENCOUNTER → 2022-09-13 | Outpatient (CLI) | payer MEDICARE, MEDICAID, SELFPAY ==
--- NOTE | 2022-09-13 15:07 | CT_ITS ---
EXAM: CT CHEST, LUNG CANCER SCREENING WITHOUT INTRAVENOUS CONTRAST CLINICAL INDICATION: smoker and gt; 30 pack years TECHNIQUE: Helically acquired images were obtained of the chest without intravenous contrast using low dose (LDCT) lung cancer screening protocol. This CT exam was performed using one or more of the following dose reduction techniques: automated exposure control, adjustment of the mA and/or kV according to patient size, and/or use of iterative reconstruction technique. This report was created using [employer] report generation technology. COMPARISON: 08/10/2021 FINDINGS: LUNGS AND PLEURAL SPACES: Previously seen groundglass opacities in the periphery of the lungs resolved. There is no focal consolidation. There is minimal scarring in the lung bases. No mass. No pleural effusion or thickening. No pneumothorax. HEART: Unremarkable. Heart size is normal. No pericardial effusion. No significant coronary artery calcifications. MEDIASTINUM: Unremarkable. No mediastinal or hilar adenopathy. Esophagus is unremarkable. No hiatal hernia. THYROID: Unremarkable. No thyroid lesions. BONES/JOINTS: Unremarkable. No suspicious lytic or blastic abnormality. VASCULATURE: Unremarkable. Thoracic aorta is non-dilated. LYMPH NODES: Unremarkable. No enlarged lymph nodes. CT/Low Dose CT Lung Screening IMPRESSION: Minimal scarring lung bases. Previously seen groundglass opacities have resolved. Lung-RADS score: 1 - Recommend continued annual screening with low-dose CT (LDCT) in 12 months. Electronically Signed: Ryan Callahan MD at 0:10 EDT ,
== END | disposition home or self-care (01) ==
PROVIDERS: PCP Internal Medicine; Referring Provider Internal Medicine Critical Care Medicine; Visit Provider Internal Medicine Critical Care Medicine
DX: F17.210 Nicotine dependence, cigarettes, uncomplicated (principal)
CPT/HCPCS: 71271

== ENCOUNTER → 2023-04-17 | Outpatient (CLI) | payer MEDICARE, MEDICAID, SELFPAY | END | disposition home or self-care (01) | LOC: SL 13:20 | PROVIDERS: PCP Internal Medicine; Referring Provider Nurse Practitioner Acute Care; Visit Provider Nurse Practitioner Acute Care | DX: G47.33 Obstructive sleep apnea (adult) (pediatric) (principal) | CPT/HCPCS: 98960; G0463 ==

== ENCOUNTER → 2025-03-03 | Outpatient (CLI) | payer MEDICARE, SELFPAY ==
--- NOTE | 2025-03-03 14:00 | US_ITS ---
PROCEDURE: KIDNEY AND BLADDER 03/03/2025 REASON FOR EXAM: HEMATURIA TECHNIQUE: Procedure Code: USKI Modality: US Procedure: KIDNEY AND BLADDER COMPARISON: None FINDINGS: Kidneys: Right kidney is 10.3 x 5.8 x 4.9 cm, while the left is 10.9 x 6.5 x 4.9 cm. [place]: Prominent extrarenal pelvis on the right. No caliectasis on the right. No hydronephrosis in the left.. Cysts or Masses: No cysts or large solid renal masses. Other: Prevoid bladder volume 105 cc. Postvoid bladder volume 0 cc. Bladder appears normal. Bilateral ureteral jets are seen. US/Kidney and Bladder IMPRESSION: No acute abnormality Reading Location: [id number]
== END | disposition home or self-care (01) ==
LOC: US 13:59
PROVIDERS: PCP Internal Medicine; Referring Provider Urology; Visit Provider Urology
DX: R31.9 Hematuria, unspecified (principal)
CPT/HCPCS: 76770